=== PATIENT | male | born 1980 | race African-American/Black ===

== ENCOUNTER 2017-01-21 08:06 | Emergency (ER) | payer SELFPAY ==
--- NOTE | 2017-01-21 08:58 | ER Document Report ---
HPI - HPI Patient complains to provider of: fell backwards about 3 feet onto back Onset: Just prior to arrival Onset/Duration: Sudden Quality of pain: Achy Pain Level: 5 Context: 36 yo fell backwards onto back from 1st step on semi truck door prior to arrival. Has intermittent chronic low back pain but this hurts on the right side all the way up. No chest pain or shortness of breath. Hurts to stand upright. Very dramatic in getting out of the wheelchair and flops down onto the bed on his stomach. No iv drug use, no fever, no saddle anesthesia, no radiculopathy. Associated Symptoms: None Exacerbated by: Movement Relieved by: Denies Similar symptoms previously: Yes Recently seen / treated by doctor: No - ROS ROS below otherwise negative: Yes Systems Reviewed and Negative: Yes All other systems reviewed and negative - DERM Skin Color: Normal <BROWN MALLORY - Last Filed: 01/22/17 12:06> Past Medical History - General Information source: Patient - Social History Smoking Status: Current Every Day Smoker Chew tobacco use (# tins/day): No Frequency of alcohol use: None Drug Abuse: None Lives with: Family Family History: CAD, CVA, DM, Hyperlipidemia, Hypertension, Malignancy Renal/ Medical History: Denies: Hx Peritoneal Dialysis Musculoskeltal Medical History: 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 IN LAST 30 DAYS: No - HEENT HEENT: Atraumatic, Normocephalic - NECK Neck: Supple - RESPIRATORY Respiratory: Breath Sounds Normal, No Respiratory Distress O2 Sat by Pulse Oximetry: 100 - CARDIOVASCULAR Cardiovascular: Regular Rate, Regular Rhythm - GI/ABDOMEN Gastrointestinal: Abdomen Soft, Abdomen Non-Tender - MUSCULOSKELETAL/EXTREMETIES Musculoskeletal/Extremeties: MAEW, FROM, Tender - withdraws from light touch whole back, no ecchymosis or abrasions. negative: Eccymosis - NEURO Level of Consciousness: Awake, Alert Deep Tendon Reflexes: 2+ - jose e ankle and patellar - DERM Integumentary: Warm, Dry, No Rash <BROWN MALLORY - Last Filed: 01/22/17 12:06> Course - Vital Signs Vital signs: Temp Pulse Resp BP Pulse Ox 98.0 F 63 15 127/69 H 100 01/21/17 08:11 01/21/17 08:11 01/21/17 08:11 01/21/17 08:11 01/21/17 10:23 <EDWIGE TALBOT - Last Filed: 01/21/17 10:46> - Re-evaluation Re-evalutation: 01/21/17 10:21 X-rays are negative per radiologist - Vital Signs Vital signs: Temp Pulse Resp BP Pulse Ox 98.0 F 63 15 127/69 H 100 01/21/17 08:11 01/21/17 08:11 01/21/17 08:11 01/21/17 08:11 01/21/17 08:11 <BROWN MALLORY - Last Filed: 01/22/17 12:06> Discharge <EDWIGE TALBOT - Last Filed: 01/21/17 10:46> <BROWN MALLORY - Last Filed: 01/22/17 12:06> - Discharge Clinical Impression: Muscle strain Back contusion Qualifiers: Encounter type: initial encounter Laterality: unspecified laterality Qualified Code(s): S20.229A - Contusion of unspecified back wall of thorax, initial encounter Condition: Good Disposition: HOME, SELF-CARE Instructions: Anti-Inflammatory Medication ([facility]), Contusion ([facility]), Low Back Pain ([facility]), Muscle Relaxers ([facility]), Upper Back Strain ([facility]), Warm Packs ([facility]) Additional Instructions: warm compress to er if symptoms worsen Please complete the patient satisfaction survey if you get one, and return it.. If you do not receive a survey, then you can go to the [facility] website, [email or web address] and place your comments about your very good care. Thank you very much. It was a pleasure being your medical provider today. Prescriptions: Ibuprofen [Motrin 800 mg Tablet] 800 mg PO Q8HP PRN #30 tablet PRN Reason: Cyclobenzaprine HCl [Flexeril 10 Mg Tablet] 10 mg PO TIDP PRN #20 tablet PRN Reason:
[2017-01-21] MEDS ORDERED: IBUPROFEN 800 MG TABLET PO ONE (08:59)
[2017-01-21] MEDS ORDERED: ACETAMINOPHEN 325 MG TABLET PO ONE (08:59)
--- NOTE | 2017-01-21 09:59 | RADIOLOGY REPORT (SQ) ---
EXAM DESCRIPTION: SHOULDER RIGHT 2 OR MORE VIEWS COMPLETED DATE/TIME: 01/21/2017 9:48 am REASON FOR STUDY: fall COMPARISON: None. NUMBER OF VIEWS: Three views. TECHNIQUE: Internal rotation, external rotation, and Y view images acquired of the right shoulder. LIMITATIONS: None. FINDINGS: MINERALIZATION: Normal. BONES: No acute fracture or dislocation. No worrisome bone lesions. JOINTS: No dislocation. VISUALIZED LUNGS AND RIBS: No pneumothorax. No rib fracture. SOFT TISSUES: No radiopaque foreign body. OTHER: No other significant finding. IMPRESSION: NEGATIVE STUDY OF THE RIGHT SHOULDER. NO RADIOGRAPHIC EVIDENCE OF ACUTE INJURY. TECHNICAL DOCUMENTATION: JOB ID: [id number] [employer]- All Rights Reserved
--- NOTE | 2017-01-21 09:59 | RADIOLOGY REPORT (SQ) ---
EXAM DESCRIPTION: L SPINE WHOLE COMPLETED DATE/TIME: 01/21/2017 9:48 am REASON FOR STUDY: fall COMPARISON: None. NUMBER OF VIEWS: Five views including obliques. TECHNIQUE: AP, lateral, oblique, and sacral radiographic images acquired of the lumbar spine. LIMITATIONS: None. FINDINGS: MINERALIZATION: Normal. SEGMENTATION: Normal. No transitional anatomy. ALIGNMENT: Normal. VERTEBRAE: Maintained height. No fracture or worrisome bone lesion. DISCS: Preserved height. No significant osteophytes or end plate irregularity. POSTERIOR ELEMENTS: Pedicles and facets are intact. No pars defect or posterior arch defects. HARDWARE: None in the spine. PARASPINAL SOFT TISSUES: Normal. PELVIS: Intact as visualized. No fractures or worrisome bone lesions. SI joints intact. OTHER: No other significant finding. IMPRESSION: NORMAL 5 VIEW LUMBAR SPINE. TECHNICAL DOCUMENTATION: JOB ID: [id number] [employer]- All Rights Reserved
--- NOTE | 2017-01-21 10:00 | RADIOLOGY REPORT (SQ) ---
EXAM DESCRIPTION: T SPINE AP/LAT COMPLETED DATE/TIME: 01/21/2017 9:48 am REASON FOR STUDY: fall COMPARISON: None. NUMBER OF VIEWS: Two views. TECHNIQUE: AP and lateral radiographic images acquired of the thoracic spine. LIMITATIONS: None. FINDINGS: MINERALIZATION: Normal. ALIGNMENT: Normal. No scoliosis. VERTEBRAE: No fracture or bone lesion. Maintained height, normal segmentation. DISCS: No significant loss of height or significant narrowing. No large osteophytes. HARDWARE: None in the spine. MEDIASTINUM AND SOFT TISSUES: Normal heart size and aortic contour. No soft tissue abnormality. VISUALIZED LUNG BOLANOS: Clear. OTHER: No other significant finding. IMPRESSION: NO SIGNIFICANT RADIOGRAPHIC FINDING IN THE THORACIC SPINE. TECHNICAL DOCUMENTATION: JOB ID: [id number] [employer]- All Rights Reserved
[2017-01-21 11:14] VITALS: BP 117/65
== END 2017-01-21 11:15 | disposition home or self-care (01) ==
LOC: ER 08:06
DX: T14.8 Other injury of unspecified body region (principal); S20.229A Contusion of unspecified back wall of thorax, initial encounter; W17.89XA Other fall from one level to another, initial encounter; Y93.89 Activity, other specified; F17.200 Nicotine dependence, unspecified, uncomplicated
CPT/HCPCS: 72070; 72110; 99283

== ENCOUNTER 2019-09-04 04:52 | Emergency (ER) | payer MEDICAID ==
[2019-09-04] MEDS ORDERED: MORPHINE SULFATE 10 MG/ML INJ IV ONE (05:16)
[2019-09-04] MEDS ORDERED: ONDANSETRON HCL INJ/PF 4 MG/2 ML SDV IV ONE (05:17)
--- NOTE | 2019-09-04 05:18 | ER Document Report ---
ED GI/ - General Chief Complaint: Flank Pain Stated Complaint: ABDOMINAL PAIN Time Seen by Provider: 09/04/19 05:09 Primary Care Provider: QUIANA MARTIN MD [Primary Care Provider] - Follow up as needed Notes: Patient is a 39-year-old male that comes to the emergency department for chief complaint of sharp left mid to lower abdominal pain that radiates up towards his side and up towards his mid back. He states he has current stabbing pain. He states he is unsure if he is just having muscles spasms worse than usual. He denies injury, he had a normal bowel movement within the past day, he denies fever or chills, nausea or vomiting. He has a history of cervical spine injury and perform self catheterizations, takes Flomax and baclofen. He denies medical history otherwise. He has never had a kidney stone. TRAVEL OUTSIDE OF THE [place] 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 Past Surgical History: Reports: Hx Orthopedic Surgery - 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 - Immunizations Immunizations up to date: Yes Hx Diphtheria, Pertussis, Tetanus Vaccination: Yes - 2011 Review of Systems - Review of Systems Constitutional: No symptoms reported EENT: No symptoms reported Cardiovascular: No symptoms reported Respiratory: No symptoms reported Gastrointestinal: See HPI Genitourinary: See HPI Male Genitourinary: No symptoms reported Musculoskeletal: No symptoms reported Skin: No symptoms reported Hematologic/Lymphatic: No symptoms reported Neurological/Psychological: No symptoms reported Physical Exam - Vital signs Vitals: Temp Pulse Resp BP Pulse Ox 98.5 F 52 L 14 111/66 100 09/04/19 04:57 09/04/19 04:57 09/04/19 04:57 09/04/19 04:57 09/04/19 04:57 - Notes Notes: GENERAL: Patient slightly restless, appears to be uncomfortable but not in severe pain HEAD: Normocephalic, atraumatic. EYES: Pupils equal, round, and reactive to light. Extraocular movements intact. ENT: Oral mucosa moist, tongue midline. Oropharynx unremarkable. Airway patent. LUNGS: Clear to auscultation bilaterally, no wheezes, rales, or rhonchi. No respiratory distress. Non-tender chest wall. HEART: Regular rate and rhythm. No murmur ABDOMEN: There is tenderness in the left lower abdomen on exam, there is some mild generalized tenderness of the abdomen otherwise but nonspecific. No guarding or rigidity. Bowel sounds are present. GENITOURINARY: No tenderness or swelling EXTREMITIES: Moves all 4 extremities spontaneously. No edema, normal radial and dorsalis pedis pulses bilaterally. No cyanosis. BACK: Patient complains of pain with palpation over the general left CVA area of the back. No cervical, thoracic, lumbar midline tenderness. No saddle anesthesia, normal distal neurovascular exam. Moves all extremities in full ran ge of motion. NEUROLOGICAL: Alert and oriented x3. Normal speech. Cranial nerves II through XII grossly intact. Strength 5/5 in all extremities. PSYCH: Normal affect, normal mood. SKIN: Warm, dry, normal turgor. No rashes or lesions noted. Course - Re-evaluation Re-evalutation: On reevaluation patient is comfortable with no complaints. CBC unremarkable, urinalysis shows a little bit of blood, patient states he has not self cath in months. Chemistry unremarkable. Based on patient's left lower abdominal pain with radiation to the left CVA area which is very sharp CT will be performed to help clarify patient's pain. No passing ureterolithiasis, obstruction, inflammation, or perforation is noted. No acute findings. Per my read there is a large amount of stool, I do believe this is the cause of patient's pain. Patient asymptomatic on reevaluation. I did discuss results. I discussed enema but patient declined, he states he has had poor results with the same problem in the past. He states he needs a strong stool softener in order to get rid of this. He was provided with Phenergan for nausea if needed, Bentyl for cramps if needed, and lactulose after discussion. Discussed follow-up and return precautions. Patient states understanding and agreement with plan. Stable and well-appearing at time of discharge. - Vital Signs Vital signs: Temp Pulse Resp BP Pulse Ox 98.5 F 50 L 16 103/55 L 100 09/04/19 04:57 09/04/19 07:04 09/04/19 07:04 09/04/19 07:04 09/04/19 07:04 - Laboratory Result Diagrams: 09/04/19 05:34 09/04/19 05:34 Laboratory results interpreted by me: 09/04/19 09/04/19 09/04/19 05:34 05:34 05:44 MCH 33.6 H Eos % (Auto) 7.7 H Carbon Dioxide 32 H Urine Ascorbic Acid 20 H Discharge - Discharge Clinical Impression: Flank pain Abdominal pain Qualifiers: Abdominal location: generalized Qualified Code(s): R10.84 - Generalized abdominal pain Condition: Stable Disposition: HOME, SELF-CARE Additional Instructions: Your work-up is reassuring, the pain appears to be coming from your bowel, you do have a large amount of stool. Take the lactulose as prescribed, Phenergan if needed for nausea, Bentyl if needed for cramping, drink plenty of fluids. Follow-up with primary care for additional management. Return if you worsen including severe worsening pain or swelling, vomiting, fever, or any other concerning symptoms. Prescriptions: Dicyclomine HCl [Bentyl 20 mg Tablet] 20 mg PO QID PRN #20 tablet PRN Reason: Lactulose 10 gm PO BID PRN #1 bottle PRN Reason: Promethazine HCl [Phenergan 25 mg Tablet] 25 mg PO Q6H PRN #15 tablet PRN Reason: Referrals: QUIANA MARTIN MD [Primary Care Provider] - Follow up as needed
[2019-09-04 05:49] LABS: ABSOLUTE EOSINOPHILS # (AUTO) 0.3 10^3/uL (0.0-0.6); ABSOLUTE LYMPHOCYTES (AUTO) 1.7 10^3/uL (0.5-4.7); ABSOLUTE MONOCYTES (AUTO) 0.4 10^3/uL (0.1-1.4); ABSOLUTE NEUT (AUTO) 2.1 10^3/uL (1.7-8.2); BASOPHILS % (AUTO) 0.8 % (0-2); EOSINOPHILS % (AUTO) 7.7 % (0-6); HEMATOCRIT 44.8 % (37.9-51.0); HEMOGLOBIN 15.5 g/dL (13.5-17.0); LYMPHOCYTES % (AUTO) 36.6 % (13-45); MEAN CORPUSCULAR HEMOGLOBIN 33.6 pg (27.0-33.4); MEAN CORPUSCULAR HGB CONC 34.7 g/dL (32.0-36.0); MEAN CORPUSCULAR VOLUME 97 fl (80-97); MONOCYTES % (AUTO) 8.1 % (3-13); PLATELET COUNT 197 10^3/uL (150-450); RED BLOOD COUNT 4.62 10^6/uL (4.35-5.55); RED CELL DISTRIBUTION WIDTH 13.7 % (11.5-14.0); SEGMENTED NEUTROPHILS % (AUTO) 46.8 % (42-78); TOTAL CELLS COUNTED % (AUTO) 100 %; WHITE BLOOD COUNT 4.5 10^3/uL (4.0-10.5)
[2019-09-04 05:54] LABS: APPEARANCE,URINE CLEAR; BILIRUBIN,URINE NEGATIVE (NEGATIVE); COLOR,URINE YELLOW; GLUCOSE, URINE NEGATIVE (NEGATIVE); KETONES,URINE NEGATIVE (NEGATIVE); LEUKOCYTE ESTERASE,URINE NEGATIVE (NEGATIVE); NITRITE,URINE NEGATIVE (NEGATIVE); PROTEIN,URINE NEGATIVE (NEGATIVE); URINE SPECIFIC GRAVITY 1.018; UROBILINOGEN,URINE NEGATIVE mg/dL (<2.0)
[2019-09-04 06:08] LABS: ALKALINE PHOSPHATASE 55 U/L (38-126); ANION GAP 6 (5-19); ASPARTATE AMINO TRANSFERASE 26 U/L (17-59); BILIRUBIN,TOTAL 0.5 mg/dL (0.2-1.3); BLOOD UREA NITROGEN 12 mg/dL (7-20); CARBON DIOXIDE 32 mmol/L (22-30); CHLORIDE 103 mmol/L (98-107); GLUCOSE 92 mg/dL (75-110); POTASSIUM 4.7 mmol/L (3.6-5.0); TOTAL PROTEIN 7.9 g/dL (6.3-8.2)
--- NOTE | 2019-09-04 07:10 | RADIOLOGY REPORT (SQ) ---
CT abdomen and pelvis without contrast on 09/04/2019 at 6:27 AM CLINICAL INDICATION: Left-sided back pain, left-sided abdominal pain TECHNIQUE: Multiple axial images are obtained throughout the abdomen and pelvis without the administration of contrast. This exam was performed according to our departmental dose-optimization program, which includes automated exposure control, adjustment of the mA and/or kV according to patient size and/or use of iterative reconstruction technique. Total DLP is 245.94 mGy*cm. COMPARISON: None FINDINGS: Abdomen: The lung bases are clear. There is an indeterminate 1 cm low-density left hepatic lesion that likely represents a cyst or hemangioma but is indeterminate on axial image 14. There are no renal or ureteral stones and no hydronephrosis. The unenhanced solid abdominal organs are otherwise unremarkable. There is no abdominal adenopathy. There is no free fluid or free air within the abdomen. The abdominal portion of the GI tract is unremarkable. Pelvis: Pelvic portion of the GI tract including the appendix is unremarkable. No free fluid is noted in the pelvis. There is no pelvic adenopathy. No bony abnormality is noted. IMPRESSION: Essentially unremarkable unenhanced exam.
[2019-09-04 07:53] VITALS: BP 106/61
== END 2019-09-04 07:52 | disposition home or self-care (01) ==
LOC: ER 04:52
DX: R10.84 Generalized abdominal pain (principal); R10.9 Unspecified abdominal pain; R10.30 Lower abdominal pain, unspecified; M54.9 Dorsalgia, unspecified; F17.200 Nicotine dependence, unspecified, uncomplicated; Z79.899 Other long term (current) drug therapy
CPT/HCPCS: 99284; 96374; 96375; 36415; 83690; 85025; 80053; 81001; 74176; J2270; J2405